=== PATIENT | male | born 1980 | race Caucasian/White ===

== ENCOUNTER 2016-11-15 14:19 | Emergency (ER) | payer MEDICAID ==
[~2016-11-15] VITALS: Ht 165.1 cm; Wt 114.0 kg
[~2016-11-15 14:19] MED LIST: DOCU-144 PO; HYD25 PO; POLY17PO6 PO
[2016-11-15 14:29] VITALS: Ht 165.1 cm; Wt 114.0 kg
[2016-11-15] MEDS ORDERED: HYDROCODONE/APAP (5/325) TAB PO ONE (16:30)
--- NOTE | 2016-11-15 17:44 | RADRPT ---
PROCEDURE: CT brain without contrast CLINICAL INDICATION: Headaches. Hypertension TECHNIQUE: A CT of the brain was performed utilizing axial sections from the skull base through th e vertex without contrast. Sagittal and coronal images were also reformatted. The exam CTDIvol = 42. 81 mGy and DLP = 720.23 mGy-cm. COMPARISON: None available FINDINGS: No acute intracranial hemorrhage is identified. There is no mass effect or midline shift. No extra -axial fluid collection is seen. The ventricles and sulci are within normal limits for size and con figuration. The density of the brain is within normal limits. Carvajal-white differentiation is preser kim. The osseous structures are unremarkable. The mastoid air cells and visualized paranasal sinuses are clear. RPTAT:HJJR IMPRESSION: Unremarkable noncontrast CT of the brain. Physician Nelida Date Time Electronically viewed and signed by Physician Nelida on 11/15/2016 17:44 JR/
--- NOTE | 2016-11-15 18:08 | ERD ---
ER Documentation Chief Complaint Date/Time DATE: 11/15/16 TIME: 18:03 Chief Complaint HTN AT HOME HAS CARNES HPI This is a 36-year-old male who presents to the emergency department today complaining of a headache and elevated blood pressure. Patient is here with his who states that he was seen here a few months ago and was given medication for his high blood pressure. Patient has not followed up with a primary care physician. He was also given amlodipine by another doctor and he states that he takes that in the morning. States he has had elevated blood pressures of in the 190s at home. States it has been ongoing for the past 2-3 weeks. States that his headache is in the front and the back. states can you please "check his uric acid". states that he does not have health insurance and that he only has emergency Medi-[facility]gardo. Denies any chest pain, shortness of breath, fevers or chills. ROS All systems reviewed and are negative except as per history of present illness. Medications Home Meds Active Scripts Acetaminophen* (Tylophen*) 500 Mg Capsule, 1 CAP PO Q6H Y for PAIN AND OR ELEVATED TEMP, #30 CAP Prov:NATHALY DARBY PA-C 11/15/16 Amlodipine Besylate* (Amlodipine Besylate*) 10 Mg Tablet, 10 MG PO DAILY, #30 TAB Prov:NATHALY DARBY PA-C 11/15/16 Polyethylene Glycol* (Miralax*) 17 Gm Powd.pack, 17 GM PO DAILY Y for CONSTIPATION, #7 Prov:SHALINI CARRENO MD 06/12/16 Hydrochlorothiazide* (Hydrochlorothiazide*) 25 Mg Tab, 25 MG PO DAILY, #30 TAB Prov:SHALINI CARRENO MD 06/12/16 Docusate Sodium* (Colace*) 100 Mg Capsule, 100 MG PO BID, #60 CAP 0 Refills Prov:RHONA ELMORE PA-C 11/01/15 Docusate Sodium* (Colace*) 100 Mg Capsule, 100 MG PO BID, #30 CAP Prov:ERIK BENZ PA-C 07/15/15 Allergies Allergies: Coded Allergies: No Known Allergy (Unverified , 11/01/15) PMhx/Soc History of Surgery: No Anesthesia Reaction: No Hx Neurological Disorder: No Hx Respiratory Disorders: No Hx Cardiac Disorders: Yes (HTN) Hx Psychiatric Problems: No Hx Miscellaneous Medical Probl: No Hx Alcohol Use: No Hx Substance Use: No Hx Tobacco Use: No Physical Exam Vitals Vital Signs Date Time Temp Pulse Resp B/P Pulse Ox O2 Delivery O2 Flow Rate FiO2 11/15/16 14:29 98.3 75 18 157/99 99 Physical Exam Const: NAD Head: Atraumatic Eyes: Normal Conjunctiva. PERRLA. EOM intact. ENT: Normal External Ears, Nose and Mouth. Neck: Full range of motion..~ No meningismus. Resp: Clear to auscultation bilaterally Cardio: Regular rate and rhythm, no murmurs Abd: Soft, non tender, non distended. Normal bowel sounds Skin: No petechiae or rashes Back: No midline or flank tenderness Ext: No cyanosis, or edema Neur: Awake and alert. No focal neurologic deficits. No gait ataxia. Psych: Normal Mood and Affect Results 24 hrs Current Medications Medications (Trade) Dose Ordered Sig/Lawrence Route PRN Reason Start Time Stop Time Status Last Admin Dose Admin Acetaminophen/ Hydrocodone Bitart ([place] (5/325)) 1 tab ONCE ONCE PO 11/15/16 16:30 11/15/16 16:31 DC 11/15/16 16:09 Acetaminophen (Tylenol Tab) 500 mg ONCE STAT PO 11/15/16 18:21 11/15/16 18:24 DC 11/15/16 18:28 DIAGNOSTIC IMAGING REPORT Patient: DESEAN MIMS : 1980 Age: 36 Sex: M [id number] DOS: 11/15/16 0000 Ordering MD: NATHALY DARBY PA-C Location: [facility] Room/Bed: PROCEDURE: CT brain without contrast CLINICAL INDICATION: Headaches. Hypertension TECHNIQUE: A CT of the brain was performed utilizing axial sections from the skull base through the vertex without contrast. Sagittal and coronal images were also reformatted. The exam CTDIvol = 42.81 mGy and DLP = 720.23 mGy-cm. COMPARISON: None available FINDINGS: No acute intracranial hemorrhage is identified. There is no mass effect or midline shift. No extra-axial fluid collection is seen. The ventricles and sulci are within normal limits for size and configuration. The density of the brain is within normal limits. Carvajal-white differentiation is preserved. The osseous structures are unremarkable. The mastoid air cells and visualized paranasal sinuses are clear. RPTAT:HJJR IMPRESSION: Unremarkable noncontrast CT of the brain. Physician Nelida Date Time Electronically viewed and signed by Jose Manuel Rooney Physician on 11/15/2016 17:44 JR/ CC: NATHALY DARBY PA-C Procedures/MDM This a 36-year-old male who presents to the emergency department today complaining of high blood pressure that is been ongoing for the past several weeks in the upper 190s. He is also complaining of a frontal and posterior headache. Patient is afebrile and otherwise well-appearing here in the emergency department. Upon review of patient's medical records he was seen here for concern for elevated blood pressure at that time in May 2016. Patient was given hydrochlorothiazide 25 mg to take once a day. At some point patient began taking amlodipine 5 mg. He has not followed up with a doctor because "he does not have a primary care doctor and only has emergency medical" . Today patient's blood pressure is 157/99. He is no chest pain or shortness of breath and I do not feel he requires laboratory workup at this time. Given the location of the patient's head and chronic elevated blood pressure did obtain a head CT scan. Discussed the patient with Dr. Carreno and he is in agreement with the plan. Head CT is unremarkable. There is no acute intracranial hemorrhage. There is no mass-effect or midline shift. Low suspicion for acute hemorrhage, mass, abscess. I have explained to the that there is no indication to obtain laboratory work or a uric acid. I have explained her that she needs to see a primary care physician to help manage all of her 's medical complaints. Spoke with registration and instructed the patient to follow up with the patient patient was instructed to return to the emergency room to speak with Tonny in registration on Thursday for application for Medi-[facility]. Patient and understood. Patient symptoms at this time most consistent with headache and hypertension. Low suspicion for hypertensive emergency. Patient was given [place] here in the emergency department for his headache and headache resolved. Patient has been taking amlodipine at home and therefore did give him a refill of amlodipine for 10 mg as well as Tylenol. Discussed medication dosing with Dr. Huntley and he felt that this patient had been taking amlodipine to keep him on the same medication and have the patient follow-up with a primary care doctor.. Patient had taken hydrochlorothiazide in the past he has been getting it from emergency department At this time the patient is stable for discharge and outpatient management. Patient should follow up with their PCP in the next 1-2 days. They may return to the emergency department sooner for any persistent or worsening of symptoms. Patient and understood and agreed with the plan. No prior to discharge I was notified by nursing staff that patient had a blood pressure of 160/106. Patient was not complaining of a headache however he was given p.o. Cardene here prior to discharge. Departure Diagnosis: Primary Impression: Headache Headache type: unspecified Headache chronicity pattern: episodic headache Intractability: not intractable Qualified Code: R51 - Nonintractable episodic headache, unspecified headache type Additional Impression: Hypertension Hypertension type: essential hypertension Qualified Code: I10 - Essential hypertension Condition: NATHALY Morales PA-C Nov 15, 2016 18:07
[2016-11-15] MEDS ORDERED: AMLO-147 PO (18:21)
[2016-11-15] MEDS ORDERED: ACETAMINOPHEN 500 MG TAB PO STA (18:21)
[2016-11-15] MEDS ORDERED: ACET500C5 PO (18:22)
[2016-11-15] MEDS ORDERED: NICARDipine HCL 30 MG CAPSULE PO ONE (19:00)
[2016-11-15 19:21] VITALS: BP 170/100; PULSE 68; RESP 16
== END 2016-11-15 19:27 | disposition home or self-care (01) ==
LOC: FTE 14:19
DX: R51 Headache (principal); I10 Essential (primary) hypertension
CPT/HCPCS: 70450; Z7502; Z7610

== ENCOUNTER 2017-02-03 14:19 | Emergency (ER) | payer MEDICAID ==
[~2017-02-03] VITALS: Ht 175.3 cm; Wt 99.0 kg
[~2017-02-03 14:19] MED LIST changes: +ACET500C5 PO; +AMLO-147 PO
[2017-02-03 14:29] VITALS: Ht 175.3 cm; Wt 99.0 kg
[2017-02-03] MEDS ORDERED: ELIM TOP (15:53)
[2017-02-03] MEDS ORDERED: HYDR-842 PO (15:53)
[2017-02-03] MEDS ORDERED: TRIA60LO10 TOP (15:53)
--- NOTE | 2017-02-03 16:03 | ERD ---
ER Documentation Chief Complaint Date/Time DATE: 02/03/17 TIME: 16:00 Chief Complaint rash x 10 days HPI 36-year-old male who presents with a pruritic rash to his extremities and trunk. The patient describes a linear excoriated rash to his upper extremities and trunk for approximately 10 days. He has tried some topical cream without relief. No fevers or chills no new medications, no lesions to the palms or soles. ROS All systems reviewed and are negative except as per history of present illness. Medications Home Meds Active Scripts Triamcinolone Acetonide (Triamcinolone Acetonide) 0.025% - 60 Ml Lotion, 1 APPLIC TOP QID Y for ITCHING, #1 BOTTLE Prov:SHALINI GONSALES MD 02/03/17 Hydroxyzine Hcl* (Atarax*) 25 Mg Tab, 25 MG PO Q6H Y for ITCHING, #30 TAB Prov:SHALINI GONSALES MD 02/03/17 Permethrin* (Elimite*) 5% Cr, 1 APPLIC TOP ONCE, #2 TUB Prov:SHALINI GONSALES MD 02/03/17 Acetaminophen* (Tylophen*) 500 Mg Capsule, 1 CAP PO Q6H Y for PAIN AND OR ELEVATED TEMP, #30 CAP Prov:NATHALY DARBY PA-C 11/15/16 Amlodipine Besylate* (Amlodipine Besylate*) 10 Mg Tablet, 10 MG PO DAILY, #30 TAB Prov:NATHALY DARBY PA-C 11/15/16 Polyethylene Glycol* (Miralax*) 17 Gm Powd.pack, 17 GM PO DAILY Y for CONSTIPATION, #7 Prov:SHALINI GONSALES MD 06/12/16 Hydrochlorothiazide* (Hydrochlorothiazide*) 25 Mg Tab, 25 MG PO DAILY, #30 TAB Prov:SHALINI GONSALES MD 06/12/16 Docusate Sodium* (Colace*) 100 Mg Capsule, 100 MG PO BID, #60 CAP 0 Refills Prov:RHONA ELMORE PA-C 11/01/15 Docusate Sodium* (Colace*) 100 Mg Capsule, 100 MG PO BID, #30 CAP Prov:ERIK BENZ PA-C 07/15/15 Allergies Allergies: Coded Allergies: No Known Allergy (Unverified , 11/01/15) PMhx/Soc Medical and Surgical Hx: pt denies Medical Hx, pt denies Surgical Hx History of Surgery: No Anesthesia Reaction: No Hx Neurological Disorder: No Hx Respiratory Disorders: No Hx Cardiac Disorders: Yes (HTN) Hx Psychiatric Problems: No Hx Miscellaneous Medical Probl: No Hx Alcohol Use: No Hx Substance Use: No Hx Tobacco Use: No FmHx Family History: No diabetes Physical Exam Vitals Vital Signs Date Time Temp Pulse Resp B/P Pulse Ox O2 Delivery O2 Flow Rate FiO2 02/03/17 14:29 98.3 99 18 160/80 99 Physical Exam General: Well developed, well nourished, no acute distress Head: Normocephalic, atraumatic. Eyes: EOM intact ENT: Moist mucous membranes Neck: Full ROM Respiratory: No respiratory distress Cardiovascular: Good capillary refil Abdominal: Nondistended : Deferred MSK: No edema, no unilateral swelling, 5/5 strength Neurologic: Alert and oriented, moving all extremities, normal speech, steady gait Skin: Linear excoriations to the upper extremities on the extensor surfaces of bilateral upper extremities, right lower extremity and trunk, no vesicular lesions, no urticaria Psych: Normal mood Procedures/MDM Given the linear nature of these lesions this is possibly consistent with scabies. No evidence of HSV, urticaria or systemic illness. No evidence of cellulitis. I believe a trial permethrin and Atarax would be reasonable. Referral to dermatology was advised. We discussed follow up with the patient's primary care doctor within 24 to 48 hours as needed. We also discussed return to the emergency room for worsening symptoms or worsening condition. Outpatient referral: [None required] Discharge Medications: Triamcinolone, permethrin, Atarax Departure Diagnosis: Primary Impression: Scabies Condition: Stable Patient Instructions: Scabies Referrals: COMMUNITY CLINICS YOU HAVE RECEIVED A MEDICAL SCREENING EXAM AND THE RESULTS INDICATE THAT YOU DO NOT HAVE A CONDITION THAT REQUIRES URGENT TREATMENT IN THE EMERGENCY DEPARTMENT. FURTHER EVALUATION AND TREATMENT OF YOUR CONDITION CAN WAIT UNTIL YOU ARE SEEN IN YOUR DOCTORS OFFICE WITHIN THE NEXT 1-2 DAYS. IT IS YOUR RESPONSIBILITY TO MAKE AN APPOINTMENT FOR FOLOW-UP CARE. IF YOU HAVE A PRIMARY DOCTOR --you should call your primary doctor and schedule an appointment IF YOU DO NOT HAVE A PRIMARY DOCTOR YOU CAN CALL OUR PHYSICIAN REFERRAL HOTLINE AT IF YOU CAN NOT AFFORD TO SEE A PHYSICIAN YOU CAN CHOSE FROM THE FOLLOWING [facility] [address] [place] [facility] [address] [place] [facility] [address] [facility] [address] [facility] [address] [facility]. [facility] [address] [facility]. [facility] YOU HAVE RECEIVED A MEDICAL SCREENING EXAM AND THE RESULTS INDICATE THAT YOU DO NOT HAVE A CONDITION THAT REQUIRES URGENT TREATMENT IN THE EMERGENCY DEPARTMENT. FURTHER EVALUATION AND TREATMENT OF YOUR CONDITION CAN WAIT UNTIL YOU ARE SEEN IN YOUR DOCTORS OFFICE WITHIN THE NEXT 1-2 DAYS. IT IS YOUR RESPONSIBILITY TO MAKE AN APPOINTMENT FOR FOLOW-UP CARE. IF YOU HAVE A PRIMARY DOCTOR --you should call your primary doctor and schedule and appointment IF YOU DO NOT HAVE A PRIMARY DOCTOR YOU CAN CALL OUR PHYSICIAN REFERRAL HOTLINE AT . IF YOU CAN NOT AFFORD TO SEE A PHYSICIAN YOU CAN CHOSE FROM THE FOLLOWING [facility] INSTITUTIONS: [facility] [address] [place] [address] [facility] [address] [place] [address] LOCATED WITHIN [facility] [address] [place] [address] [facility] Dermatology Additional Instructions: Call your primary care doctor TOMORROW for an appointment during the next 1 WEEK.Tell the inter com installer that you were referred from this facility.See the doctor sooner or return here if your condition worsens before your appointment time. SHALINI GONSALES MD Feb 03, 2017 16:03
== END 2017-02-03 16:16 | disposition home or self-care (01) ==
LOC: FTE 14:19
DX: B86 Scabies (principal); I10 Essential (primary) hypertension
CPT/HCPCS: 99284

== ENCOUNTER 2017-03-22 10:49 | Emergency (ER) | payer MEDICAID ==
[~2017-03-22] VITALS: Ht 172.7 cm; Wt 117.0 kg
[~2017-03-22 10:49] MED LIST changes: +ELIM TOP; -HYD25 PO; +HYDR-842 PO; +HYDR25TA6 PO; +TRIA60LO10 TOP
[2017-03-22 10:51] VITALS: Ht 172.7 cm; Wt 117.0 kg
--- NOTE | 2017-03-22 12:57 | ERD ---
ER Documentation Chief Complaint Date/Time DATE: 03/22/17 TIME: 12:55 Chief Complaint Complains of lump or swelling on the inner jaw HPI This 28-year-old male complains of a bump on the right inner aspect of his right cheek for the last 4 months. Denies any history of trauma. Denies any tobacco use or smoking. Denies any bleeding or discharge. Patient states that he does not have insurance for outpatient specialist visit. ROS All systems reviewed and are negative except as per history of present illness. Medications Home Meds Active Scripts Triamcinolone Acetonide (Triamcinolone Acetonide) 0.025% - 60 Ml Lotion, 1 APPLIC TOP QID Y for ITCHING, #1 BOTTLE Prov:SHALINI GONSALES MD 02/03/17 Hydroxyzine Hcl* (Atarax*) 25 Mg Tab, 25 MG PO Q6H Y for ITCHING, #30 TAB Prov:SHALINI GONSALES MD 02/03/17 Permethrin* (Elimite*) 5% Cr, 1 APPLIC TOP ONCE, #2 TUB Prov:SHALINI GONSALES MD 02/03/17 Acetaminophen* (Tylophen*) 500 Mg Capsule, 1 CAP PO Q6H Y for PAIN AND OR ELEVATED TEMP, #30 CAP Prov:NATHALY DARBY PA-C 11/15/16 Amlodipine Besylate* (Amlodipine Besylate*) 10 Mg Tablet, 10 MG PO DAILY, #30 TAB Prov:NATHALY DARBY PA-C 11/15/16 Polyethylene Glycol* (Miralax*) 17 Gm Powd.pack, 17 GM PO DAILY Y for CONSTIPATION, #7 Prov:SHALINI GONSALES MD 06/12/16 Hydrochlorothiazide* (Hydrochlorothiazide*) 25 Mg Tab, 25 MG PO DAILY, #30 TAB Prov:SHALINI GONSALES MD 06/12/16 Docusate Sodium* (Colace*) 100 Mg Capsule, 100 MG PO BID, #60 CAP 0 Refills Prov:RHONA EMLORE PA-C 11/01/15 Docusate Sodium* (Colace*) 100 Mg Capsule, 100 MG PO BID, #30 CAP Prov:ERIK BENZ PA-C 1/31/16 Allergies Allergies: Coded Allergies: No Known Allergy (Unverified , 11/01/15) PMhx/Soc Medical and Surgical Hx: pt denies Surgical Hx History of Surgery: No Anesthesia Reaction: No Hx Neurological Disorder: No Hx Respiratory Disorders: No Hx Cardiac Disorders: Yes (HTN) Hx Psychiatric Problems: No Hx Miscellaneous Medical Probl: No Hx Alcohol Use: No Hx Substance Use: No Hx Tobacco Use: No Smoking Status: Never smoker Physical Exam Vitals Vital Signs Date Time Temp Pulse Resp B/P Pulse Ox O2 Delivery O2 Flow Rate FiO2 03/22/17 10:51 97.2 77 20 163/93 98 Physical Exam Const: [], [id number] per Head: Atraumatic Eyes: Normal Conjunctiva ENT: Normal External Ears, Nose and Mouth. Inner cheek approximate 1 cm whitish firm papule. No erythema or fluctuance or discharge. This is in the area of Stensen's duct. Neck: Full range of motion..~ No meningismus. Resp: Clear to auscultation bilaterally Cardio: Regular rate and rhythm, no murmurs Abd: Soft, non tender, non distended. Normal bowel sounds Skin: No petechiae or rashes Back: No midline or flank tenderness Ext: No cyanosis, or edema Neur: Awake and alert Psych: Normal Mood and Affect Procedures/MDM She presents with a lesion on the right inner aspect of his cheek. Patient was advised that the proper treatment would be outpatient evaluation by specialist the patient is requesting removal given his lack of resources to see a specialist. Patient agreed to biopsy here despite risk of incomplete excision and wishes to proceed. Cc lidocaine was used for local rotation on the right inner cheek. Scalpel was used to remove the lesion from the inner cheek. 2 5-0 Vicryl sutures one being a [id number] were placed for hemostasis. Patient tolerated procedure well. Specimen sent for biopsy. Patient will be discharged home with instructions for wound check and suture removal. Pathology results pending. Patient return sooner for fevers, redness, new worsening symptoms. Departure Diagnosis: Primary Impression: Tumor cells, uncertain whether benign or malignant Condition: Stable Patient Instructions: Tumor, Uncertain Cause Additional Instructions: Pathology likely back in 1 week. Recheck in 2 days for redness, swelling. Recommend suture removal in 1 week. May need oral surgeon or ENT specialist for abnormal results. RODRICK PONCE MD Mar 22, 2017 12:57
== END 2017-03-22 13:08 | disposition home or self-care (01) ==
LOC: FTE 10:49
DX: R22.0 Localized swelling, mass and lump, head (principal); I10 Essential (primary) hypertension
CPT/HCPCS: 11441; 88304; Z7502

== ENCOUNTER 2017-03-24 15:25 | Emergency (ER) | payer MEDICAID ==
[~2017-03-24] VITALS: Wt 89.0 kg
[2017-03-24] MEDS ORDERED: IBUP-1542 PO (16:49)
[2017-03-24] MEDS ORDERED: HYDR-902 PO (16:49)
[2017-03-24] MEDS ORDERED: NYST1000 PO (16:49)
--- NOTE | 2017-03-24 17:02 | ERD ---
ER Documentation Chief Complaint Date/Time DATE: 03/24/17 TIME: 17:00 Chief Complaint mouth wound check HPI Patient is a 36-year-old male with hypertension who presents with a follow-up for a right mouth lesion. The patient is having pain in the right inner mouth and had a biopsy done in the ER 2 days ago. He has no fevers. He denies tobacco use. He is asking for pain medication and results of his biopsy. Upon review of old medical records this is the patient's seventh visit to the ER since 2016. He does not currently have a primary doctor. ROS All systems reviewed and are negative except as per history of present illness. Medications Home Meds Active Scripts Nystatin (Nystatin) 100,000 Unit/1 Ml Oral.susp, 5 ML PO QID for 7 Days, OZ Swish and swallow Prov:BILL HELM MD 03/24/17 Ibuprofen* (Motrin*) 600 Mg Tab, 600 MG PO Q6H Y for PAIN AND OR ELEVATED TEMP, #30 TAB Prov:BILL HELM MD 03/24/17 Hydrocodone/Acetaminophen ([place] 10-325 Tablet) 1 Each Tablet, 1 TAB PO Q6H Y for PAIN, #7 TAB Prov:BILL HELM MD 03/24/17 Triamcinolone Acetonide (Triamcinolone Acetonide) 0.025% - 60 Ml Lotion, 1 APPLIC TOP QID Y for ITCHING, #1 BOTTLE Prov:SHALINI GONSALES MD 02/03/17 Hydroxyzine Hcl* (Atarax*) 25 Mg Tab, 25 MG PO Q6H Y for ITCHING, #30 TAB Prov:SHALINI GONSALES MD 02/03/17 Permethrin* (Elimite*) 5% Cr, 1 APPLIC TOP ONCE, #2 TUB Prov:SHALINI GONSALES MD 02/03/17 Acetaminophen* (Tylophen*) 500 Mg Capsule, 1 CAP PO Q6H Y for PAIN AND OR ELEVATED TEMP, #30 CAP Prov:NATHALY DARBY PA-C 11/15/16 Amlodipine Besylate* (Amlodipine Besylate*) 10 Mg Tablet, 10 MG PO DAILY, #30 TAB Prov:NATHALY DARBY PA-C 11/15/16 Polyethylene Glycol* (Miralax*) 17 Gm Powd.pack, 17 GM PO DAILY Y for CONSTIPATION, #7 Prov:SHALINI GONSALES MD 06/12/16 Hydrochlorothiazide* (Hydrochlorothiazide*) 25 Mg Tab, 25 MG PO DAILY, #30 TAB Prov:SHALINI GONSALES MD 06/12/16 Docusate Sodium* (Colace*) 100 Mg Capsule, 100 MG PO BID, #60 CAP 0 Refills Prov:RHONA ELMORE PA-C 11/01/15 Docusate Sodium* (Colace*) 100 Mg Capsule, 100 MG PO BID, #30 CAP Prov:ERIK BENZ PA-C 07/15/15 Allergies Allergies: Coded Allergies: No Known Allergy (Unverified , 11/01/15) PMhx/Soc History of Surgery: No Anesthesia Reaction: No Hx Neurological Disorder: No Hx Respiratory Disorders: No Hx Cardiac Disorders: Yes (HTN) Hx Psychiatric Problems: No Hx Miscellaneous Medical Probl: No Hx Alcohol Use: No Hx Substance Use: No Hx Tobacco Use: No Smoking Status: Never smoker FmHx Family History: diabetes Physical Exam Vitals Vital Signs Date Time Temp Pulse Resp B/P Pulse Ox O2 Delivery O2 Flow Rate FiO2 03/24/17 15:32 97.8 78 18 130/78 99 Physical Exam Const: No acute distress Head: Atraumatic Eyes: Normal Conjunctiva ENT: Palpable lesion inside the right buccal mucosa which has had recent biopsy, no signs of infection Neck: Full range of motion..~ No meningismus. Resp: Clear to auscultation bilaterally Cardio: Regular rate and rhythm, no murmurs Abd: Soft, non tender, non distended. Normal bowel sounds Skin: No petechiae or rashes Back: No midline or flank tenderness Ext: No cyanosis, or edema Neur: Awake and alert Psych: Normal Mood and Affect Procedures/MDM Patient is a 36-year-old male with hypertension who presents with a right mouth lesion. The patient had a biopsy done 2 days ago and the results do not show cancer cells at this time. I provided the patient with a copy of his results. 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 I will give him information for the local clinics as he does not currently have a primary doctor. The patient will be given a prescription for ibuprofen and [place] for pain and can return for any worsening symptoms. He can return for any worsening symptoms. Departure Diagnosis: Primary Impression: Lesion of mouth Condition: Fair Patient Instructions: What Are Oral Lesions? (Precancerous and Cancerous) Referrals: COMMUNITY CLINICS YOU HAVE RECEIVED A MEDICAL SCREENING EXAM AND THE RESULTS INDICATE THAT YOU DO NOT HAVE A CONDITION THAT REQUIRES URGENT TREATMENT IN THE EMERGENCY DEPARTMENT. FURTHER EVALUATION AND TREATMENT OF YOUR CONDITION CAN WAIT UNTIL YOU ARE SEEN IN YOUR DOCTORS OFFICE WITHIN THE NEXT 1-2 DAYS. IT IS YOUR RESPONSIBILITY TO MAKE AN APPOINTMENT FOR FOLOW-UP CARE. IF YOU HAVE A PRIMARY DOCTOR --you should call your primary doctor and schedule an appointment IF YOU DO NOT HAVE A PRIMARY DOCTOR YOU CAN CALL OUR PHYSICIAN REFERRAL HOTLINE AT IF YOU CAN NOT AFFORD TO SEE A PHYSICIAN YOU CAN CHOSE FROM THE FOLLOWING [facility] [address] [facility] [facility] [address] [facility] [address] [facility]. [facility] [address] [facility]. [facility] [address] [facility]. [facility]. [address] Additional Instructions: Call your primary care doctor TOMORROW for an appointment during the next 1 WEEK.Tell the secretary to the vice president that you were referred from this facility.See the doctor sooner or return here if your condition worsens before your appointment time. BILL HELM MD Mar 24, 2017 17:02
== END 2017-03-24 17:05 | disposition home or self-care (01) ==
LOC: FTE 15:25
DX: K13.70 Unspecified lesions of oral mucosa (principal); I10 Essential (primary) hypertension
CPT/HCPCS: 99283

== ENCOUNTER 2017-04-08 15:01 | Emergency (ER) | payer MEDICAID ==
[~2017-04-08] VITALS: Ht 175.3 cm; Wt 119.0 kg
[~2017-04-08 15:01] MED LIST changes: +HYDR-902 PO; +IBUP-1542 PO; +NYST1000 PO
[2017-04-08 15:05] VITALS: Ht 175.3 cm; Wt 119.0 kg
--- NOTE | 2017-04-22 18:59 | ERD ---
ER Documentation Chief Complaint Chief Complaint REQUESTING ORAL SUTURE REMOVAL HPI 28-year-old male presenting for suture removal. Denies any increased pain, numbness, tingling, loss of range of motion, fever, chills. Patient has no other complaints and describes no other associated manifestations. Nursing notes have been reviewed and are consistent with history given. ROS All systems reviewed and are negative except as per history of present illness. Medications Home Meds Active Scripts Nystatin (Nystatin) 100,000 Unit/1 Ml Oral.susp, 5 ML PO QID for 7 Days, OZ Swish and swallow Prov:BILL HELM MD 03/24/17 Ibuprofen* (Motrin*) 600 Mg Tab, 600 MG PO Q6H Y for PAIN AND OR ELEVATED TEMP, #30 TAB Prov:BILL HELM MD 03/24/17 Hydrocodone/Acetaminophen ([place] 10-325 Tablet) 1 Each Tablet, 1 TAB PO Q6H Y for PAIN, #7 TAB Prov:BILL HELM MD 03/24/17 Triamcinolone Acetonide (Triamcinolone Acetonide) 0.025% - 60 Ml Lotion, 1 APPLIC TOP QID Y for ITCHING, #1 BOTTLE Prov:SHALINI GONSALES MD 02/03/17 Hydroxyzine Hcl* (Atarax*) 25 Mg Tab, 25 MG PO Q6H Y for ITCHING, #30 TAB Prov:SHALINI GONSALES MD 02/03/17 Permethrin* (Elimite*) 5% Cr, 1 APPLIC TOP ONCE, #2 TUB Prov:SHALINI GONSALES MD 02/03/17 Acetaminophen* (Tylophen*) 500 Mg Capsule, 1 CAP PO Q6H Y for PAIN AND OR ELEVATED TEMP, #30 CAP Prov:NATHALY DARBY PA-C 11/15/16 Amlodipine Besylate* (Amlodipine Besylate*) 10 Mg Tablet, 10 MG PO DAILY, #30 TAB Prov:NATHALY DARBY PA-C 11/15/16 Polyethylene Glycol* (Miralax*) 17 Gm Powd.pack, 17 GM PO DAILY Y for CONSTIPATION, #7 Prov:SHALINI GONSALES MD 06/12/16 Hydrochlorothiazide* (Hydrochlorothiazide*) 25 Mg Tab, 25 MG PO DAILY, #30 TAB Prov:SHALINI GONSALES MD 06/12/16 Docusate Sodium* (Colace*) 100 Mg Capsule, 100 MG PO BID, #60 CAP 0 Refills Prov:RHONA ELMORE PA-C 11/01/15 Docusate Sodium* (Colace*) 100 Mg Capsule, 100 MG PO BID, #30 CAP Prov:ERIK BENZ PA-C 07/15/15 Allergies Allergies: Coded Allergies: No Known Allergy (Unverified , 11/01/15) PMhx/Soc History of Surgery: No Anesthesia Reaction: No Hx Neurological Disorder: No Hx Respiratory Disorders: No Hx Cardiac Disorders: Yes (HTN) Hx Psychiatric Problems: No Hx Miscellaneous Medical Probl: No Hx Alcohol Use: No Hx Substance Use: No Hx Tobacco Use: No Smoking Status: Never smoker Physical Exam Physical Exam Const: [] Head: Atraumatic Eyes: Normal Conjunctiva ENT: Normal External Ears, Nose and Mouth. Neck: Full range of motion..~ No meningismus. Resp: Clear to auscultation bilaterally Cardio: Regular rate and rhythm, no murmurs Abd: Soft, non tender, non distended. Normal bowel sounds Skin: No petechiae or rashes Back: No midline or flank tenderness Ext: No cyanosis, or edema Neur: Awake and alert Psych: Normal Mood and Affect Procedures/MDM Sutures removed by nursing staff. Neurovascularly intact after procedure. No signs of infection. Stable and appropriate for discharge. Departure Diagnosis: Primary Impression: Suture check Condition: Stable Additional Instructions: Follow up with your PCP within the next 1-3 days for a more thorough evaluation and a possible referral to a specialist. Return the the emergency department immediately if symptoms worsen or change. If you have any questions regarding medications, ask your pharmacist or us before you leave. If any adverse reactions occur while taking your medications, discontinue the treatment and return to the emergency department immediately. Take your medications as directed, and complete the entire course of treatment. CHRISTINA WEBBER PA-C Apr 22, 2017 18:59
== END 2017-04-08 18:14 | disposition home or self-care (01) ==
LOC: FTE 15:01
DX: Z48.02 Encounter for removal of sutures (principal); I10 Essential (primary) hypertension
CPT/HCPCS: 99281

== ENCOUNTER 2017-09-07 06:12 | Emergency (ER) | END 2017-09-07 07:04 | disposition home or self-care (01) ==